=== PATIENT | female | born 1935 ===

== ENCOUNTER 2021-11-27 06:00 | Outpatient (RCR) | payer MEDICARE, OTHER, SELFPAY | END 2021-12-24 23:59 | disposition home or self-care (01) | LOC: GPT 06:00 | PROVIDERS: Referring Provider General Practice; Visit Provider General Practice | DX: M54.50 Low back pain, unspecified (principal); M54.2 Cervicalgia; M47.23 Other spondylosis with radiculopathy, cervicothoracic region | CPT/HCPCS: 97110; 97140; 97162; 97530 ==

== ENCOUNTER 2021-12-25 06:00 | Outpatient (RCR) | payer MEDICARE, OTHER, SELFPAY | END 2022-01-24 23:59 | disposition home or self-care (01) | LOC: GPT 06:00 | PROVIDERS: Referring Provider General Practice; Visit Provider General Practice | DX: M54.50 Low back pain, unspecified (principal); M54.2 Cervicalgia; M47.23 Other spondylosis with radiculopathy, cervicothoracic region | CPT/HCPCS: 97110; 97140; 97164 ==